=== PATIENT | female | born 1940 | race Caucasian/White ===

== ENCOUNTER 2016-03-08 14:08 | Inpatient (IN) | payer OTHER ==
[2016-03-08] VITALS (9 sets, daily range): BP systolic 80–109; BP diastolic 54–66
[~2016-03-08] VITALS: Ht 160 cm; Wt 67.9 kg
[~2016-03-08 14:08] MED LIST: ADVAIR HFA120 INHAL1 IH; ALBUTEROL SULF8.5 GM IH; ALPRAZOLAM0.25 M2 PO; CARDIZEM LA120 MG PO; FLOVENT 22120 INHALA IH; FUROSEMIDE20 MG PO; LISINOPRIL5 MG PO; LO-DOSE ASPIRIN81 M1 PO; LOPRESSOR25 MG PO; LOPRESSOR50 MG PO; NITROSTAT0.4 MG SL; PEPCID40 MG PO; PREDNISONE10 M1 PO; PREDNISONE10 MG PO; SPIRIVA RESPIMAT4 GM IH; XARELTO20 MG PO
[2016-03-08 14:44] LABS: HEMATOCRIT 42.5 % (36.0-46.0); MCH 27.8 PG (29.0-34.0); MCHC 31.3 G/DL (30.0-36.0); MCV 88.9 FL (83-99); PLATELET COUNT 278 K/uL (156-360); RBC DIS.WIDTH-CV 16.6 % (11.8-14.6); RBC DIS.WIDTH-SD 49.1 % (39-53); RED BLOOD COUNT 4.78 M/uL (3.80-5.20); WHITE BLOOD COUNT 8.6 K/uL (4.1-10.2)
[2016-03-08 14:52] LABS: CHLORIDE 98 mEq/L (99-109); POTASSIUM 3.8 mEq/L (3.7-5.4); SODIUM 140 mEq/L (136-147)
[2016-03-08 14:54] LABS: GLUCOSE 202 mg/dL (70-99)
[2016-03-08 14:55] LABS: ANION GAP 11 MEQ/L (2-14)
[2016-03-08 14:58] LABS: GFR ESTIMATE (CALCULATED) > 59 mL/min/
[2016-03-08 14:59] LABS: UREA NITROGEN (BUN) 17 mg/dL (9-23)
[2016-03-08 15:06] LABS: TROP-I INTERPRETATION NEGATIVE; TROPONIN-I < 0.01 ng/mL (0.0-0.30)
[2016-03-08 15:42] LABS: TOTAL BILIRUBIN 0.8 mg/dL (0.0-1.0)
[2016-03-08 15:43] LABS: ALKALINE PHOSPHATASE 97 IU/L (3-129)
[2016-03-08 15:45] LABS: DIRECT BILIRUBIN 0.6 mg/dL (0.0-0.3)
[2016-03-08 17:15] LABS: ADD MIUA? YES; BILIRUBIN NEGATIVE; BLOOD NEGATIVE; COLOR YELLOW ((YELLOW)); GLUCOSE (STRIP) NEGATIVE; KETONES NEGATIVE; LEUKOCYTES MODERATE; NITRITE NEGATIVE; PROTEIN (STRIP) TRACE; SPECIFIC GRAVITY 1.019 (1.000-1.030)
[2016-03-08 17:40] LABS: BASE EXCESS 11.9 mEq/L (-3 to +3); BICARBONATE 38.2 mEq/L (22-26); CARBOXY HGB 3.3 % (0-5); COMMENTS - BLOOD GASES A+C+; DEVICE NC; METHEMOGLOBIN 1.2 % (0-1.5); O2 FLOW 6 L/MIN; PCO2 55 mm Hg (35-45); PO2 53 mm Hg (80-100); SITE RR; pH 7.45 (7.35-7.45)
[2016-03-08 18:15] LABS: BACTERIA 1+; CASTS PRESENT /LPF; CRYSTALS NONE SEEN; EPITHELIAL CELLS RARE; HYALINE CASTS 0-5 /LPF; MUCUS 1+; RED BLOOD CELLS 0-5 /HPF (0-5); UCUL ADDED? NO; WHITE BLOOD CELLS 0-5 /HPF (0-5)
[2016-03-09] VITALS (11 sets, daily range): BP systolic 79–99; BP diastolic 52–60
[2016-03-09 06:13] LABS: ANION GAP 6 MEQ/L (2-14); CHLORIDE 98 MEQ/L (99-109); GFR ESTIMATE (CALCULATED) > 59 mL/min/; GLUCOSE 169 mg/dL (70-99); SAMPLE HEMOLYSIS CHECK 0; SAMPLE ICTERIC CHECK 0; SAMPLE LIPEMIA CHECK 0; SODIUM 138 MEQ/L (136-147); UREA NITROGEN (BUN) 15 mg/dL (9-23)
[2016-03-09 06:23] LABS: POTASSIUM 4.8 MEQ/L (3.7-5.4)
[2016-03-09 07:01] LABS: HEMATOCRIT 42.4 % (36.0-46.0); MCH 28.2 PG (29.0-34.0); MCHC 30.9 G/DL (30.0-36.0); MCV 91.2 FL (83-99); MEAN PLAT.VOLUME 10.8 uM^3 (9.5-12.4); PLATELET COUNT 267 K/uL (156-360); RBC DIS.WIDTH-CV 16.7 % (11.8-14.6); RBC DIS.WIDTH-SD 52.1 % (39-53); RED BLOOD COUNT 4.65 M/uL (3.80-5.20)
[2016-03-09 07:12] LABS: WHITE BLOOD COUNT 5.8 K/uL (4.1-10.2)
[2016-03-09] MEDS ORDERED: FAMOTIDINE40 MG PO (13:15)
[2016-03-09] MEDS ORDERED: SPIRIVA RESPIMAT4 GM IH (13:15)
[2016-03-09] MEDS ORDERED: SEREVENT DISKU50 MCG IH (13:16)
[2016-03-09] MEDS ORDERED: LOPRESSOR50 MG PO (13:17)
[2016-03-09] MEDS ORDERED: XARELTO20 MG PO (13:18)
[2016-03-09] MEDS ORDERED: NITROSTAT0.4 MG SL (13:19)
[2016-03-09] MEDS ORDERED: CHILD ASPIRIN81 M1 PO (13:20)
[2016-03-10 03:46] VITALS: BP 97/62
[2016-03-10 08:06] VITALS: BP 107/64
[2016-03-10 12:33] VITALS: BP 97/56
[2016-03-10 16:55] VITALS: BP 104/69
[2016-03-10 19:30] VITALS: BP 110/66
[2016-03-11] VITALS (7 sets, daily range): BP systolic 96–109; BP diastolic 56–65
[2016-03-11 11:34] LABS: CARBON DIOXIDE (BICARBONATE) 35.7 MEQ/L (20-31)
[2016-03-11 11:53] LABS: D-DIMER ELISA > 4.00 mg/L FEU (< 0.57)
[2016-03-12 05:00] VITALS: BP 121/68
[2016-03-12 07:52] VITALS: BP 97/54
[2016-03-12 11:49] VITALS: BP 129/69
[2016-03-12 16:30] VITALS: BP 113/69
[2016-03-12 20:00] VITALS: BP 136/76
[2016-03-12 20:07] LABS: EOSINOPHIL (%) 0 % (0-5); HEMATOCRIT 41.3 % (36.0-46.0); IMMATURE GRANULOCYTE (%) 0.3 % (0.0-0.7); LYMPHOCYTE COUNT 0.5 K/uL (1.0-2.8); MCH 28.3 PG (29.0-34.0); MCHC 31.2 G/DL (30.0-36.0); MCV 90.6 FL (83-99); MEAN PLAT.VOLUME 10.2 uM^3 (9.5-12.4); MONOCYTE (%) 3.5 % (3-12); MONOCYTE COUNT 0.3 K/uL (0-0.8); NEUTROPHIL (%) 91.2 % (45-76); NEUTROPHIL COUNT 8.8 K/uL (1.8-6.4); PLATELET COUNT 325 K/uL (156-360); RBC DIS.WIDTH-CV 17.2 % (11.8-14.6); RBC DIS.WIDTH-SD 54.3 % (39-53); RED BLOOD COUNT 4.56 M/uL (3.80-5.20)
[2016-03-12 20:23] LABS: ANION GAP 10 MEQ/L (2-14); CHLORIDE 99 MEQ/L (99-109); GFR ESTIMATE (CALCULATED) > 59 mL/min/; GLUCOSE 210 mg/dL (70-99); SAMPLE HEMOLYSIS CHECK 0; SAMPLE ICTERIC CHECK 0; SAMPLE LIPEMIA CHECK 0; SODIUM 141 MEQ/L (136-147); UREA NITROGEN (BUN) 21 mg/dL (9-23); WHITE BLOOD COUNT 9.7 K/uL (4.1-10.2)
[2016-03-12 23:00] VITALS: BP 108/62
[2016-03-13 04:55] VITALS: BP 100/59
[2016-03-13 08:17] VITALS: BP 139/72
[2016-03-13 12:00] VITALS: BP 121/67
[2016-03-13 18:30] VITALS: BP 117/68
[2016-03-13 19:06] VITALS: BP 120/73
[2016-03-14] VITALS: BP 116/63
[2016-03-14 05:09] VITALS: BP 101/55
[2016-03-14 06:43] LABS: HEMATOCRIT 41.6 % (36.0-46.0); MCH 27.6 PG (29.0-34.0); MCHC 30.8 G/DL (30.0-36.0); MCV 89.7 FL (83-99); MEAN PLAT.VOLUME 10.1 uM^3 (9.5-12.4); PLATELET COUNT 324 K/uL (156-360); RBC DIS.WIDTH-CV 17.5 % (11.8-14.6); RBC DIS.WIDTH-SD 55.6 % (39-53); RED BLOOD COUNT 4.64 M/uL (3.80-5.20)
[2016-03-14 06:50] LABS: EOSINOPHIL (%) 0 % (0-5); IMMATURE GRANULOCYTE (%) 0.4 % (0.0-0.7); LYMPHOCYTE COUNT 0.3 K/uL (1.0-2.8); MONOCYTE (%) 3.7 % (3-12); MONOCYTE COUNT 0.3 K/uL (0-0.8); NEUTROPHIL (%) 92.2 % (45-76); NEUTROPHIL COUNT 8.3 K/uL (1.8-6.4)
[2016-03-14 07:35] LABS: ANION GAP 8 MEQ/L (2-14); CHLORIDE 100 MEQ/L (99-109); GFR ESTIMATE (CALCULATED) > 59 mL/min/; SAMPLE HEMOLYSIS CHECK 0; SAMPLE ICTERIC CHECK 0; SAMPLE LIPEMIA CHECK 0; SODIUM 139 MEQ/L (136-147); UREA NITROGEN (BUN) 21 mg/dL (9-23)
[2016-03-14 07:36] LABS: GLUCOSE 109 mg/dL (70-99); POTASSIUM 5.1 MEQ/L (3.7-5.4)
[2016-03-14 09:00] VITALS: BP 126/69
[2016-03-14] MEDS ORDERED: CEFTIN500 MG PO (15:10)
[2016-03-14] MEDS ORDERED: DIGOXIN250 MCG PO (15:11)
[2016-03-14] MEDS ORDERED: CARDIZEM60 MG PO (15:11)
[2016-03-14] MEDS ORDERED: LISINOPRIL5 MG PO (15:12)
[2016-03-14] MEDS ORDERED: PREDNISONE10 MG PO (15:13)
[2016-03-14 18:02] VITALS: BP 113/64
== END 2016-03-14 18:53 | disposition home health service (06) | DRG 190 ==
LOC: EME → EDBD 14:08 → EME 14:08 → 4EAST 18:02 → EDOF 18:02 → 4EAST 20:26
PROVIDERS: Emergency Medicine; Internal Medicine
DX: J44.1 Chronic obstructive pulmonary disease with (acute) exacerbation (principal); J96.21 Acute and chronic respiratory failure with hypoxia; J96.22 Acute and chronic respiratory failure with hypercapnia; I11.0 Hypertensive heart disease with heart failure; I50.30 Unspecified diastolic (congestive) heart failure; E86.0 Dehydration; J90 Pleural effusion, not elsewhere classified; J98.11 Atelectasis; I27.2 Other secondary pulmonary hypertension; I48.0 Paroxysmal atrial fibrillation; Z99.81 Dependence on supplemental oxygen; Z91.19 Patient's noncompliance with other medical treatment and regimen; J45.909 Unspecified asthma, uncomplicated; E78.5 Hyperlipidemia, unspecified; I73.9 Peripheral vascular disease, unspecified; F03.90 Unspecified dementia, unspecified severity, without behavioral disturbance, psychotic disturbance, mood disturbance, and anxiety; F17.200 Nicotine dependence, unspecified, uncomplicated; Z66 Do not resuscitate
CPT/HCPCS: 36600; 71010; 80048; 80076; 81003; 82803; 83880; 84484; 85025; 85027; 85379; 87040; 93005; 93970; 94640; 94640 76; 94799; 99202; 99281; 99285; J0696; J1160; J1940; J2930; J7030; J7050; J7512

== ENCOUNTER 2016-05-01 21:29 | Inpatient (IN) | payer OTHER ==
[~2016-05-01] VITALS: Ht 162.6 cm; Wt 60.2 kg
[~2016-05-01 21:29] MED LIST changes: +CARDIZEM60 MG PO; +CEFTIN500 MG PO; +CHILD ASPIRIN81 M1 PO; +DIGOXIN250 MCG PO; +FAMOTIDINE40 MG PO; +SEREVENT DISKU50 MCG IH
[2016-05-01 21:55] LABS: HEMATOCRIT 47.7 % (36.0-46.0); MCH 28.1 PG (29.0-34.0); MCV 90.5 FL (83-99); MEAN PLAT.VOLUME 9.9 uM^3 (9.5-12.4); PLATELET COUNT 224 K/uL (156-360); RBC DIS.WIDTH-CV 17.1 % (11.8-14.6); RBC DIS.WIDTH-SD 55.3 % (39-53); RED BLOOD COUNT 5.27 M/uL (3.80-5.20); WHITE BLOOD COUNT 10.9 K/uL (4.1-10.2)
[2016-05-01 22:04] LABS: CHLORIDE 104 mEq/L (99-109); POTASSIUM 5.2 mEq/L (3.7-5.4); SODIUM 144 mEq/L (136-147)
[2016-05-01 22:06] LABS: GLUCOSE 138 mg/dL (70-99)
[2016-05-01 22:07] LABS: ANION GAP 10 MEQ/L (2-14)
[2016-05-01 22:10] LABS: GFR ESTIMATE (CALCULATED) > 59 mL/min/
[2016-05-01 22:11] LABS: UREA NITROGEN (BUN) 5 mg/dL (9-23)
[2016-05-01 22:30] LABS: TROP-I INTERPRETATION NEGATIVE; TROPONIN-I < 0.01 ng/mL (0.0-0.30)
[2016-05-02] VITALS (17 sets, daily range): BP systolic 71–110; BP diastolic 47–81
[2016-05-02 00:45] LABS: DIGOXIN 0.8 ng/mL (0.8-2.0)
[2016-05-02 00:51] LABS: ADD MIUA? YES; BILIRUBIN NEGATIVE; BLOOD NEGATIVE; COLOR YELLOW ((YELLOW)); GLUCOSE (STRIP) NEGATIVE; KETONES NEGATIVE; LEUKOCYTES TRACE; NITRITE NEGATIVE; PROTEIN (STRIP) 30; SPECIFIC GRAVITY 1.015 (1.000-1.030); UROBILINOGEN 0.2 MG/DL (0.2-1.0)
[2016-05-02 01:10] LABS: BACTERIA 1+ /HPF; EPITHELIAL CELLS RARE /HPF; MUCUS TRACE /LPF; UCUL ADDED? NO; WHITE BLOOD CELLS 0-5 /HPF (0-5)
[2016-05-02 04:58] LABS: MCH 28.2 PG (29.0-34.0); MCHC 31.4 G/DL (30.0-36.0); MCV 89.8 FL (83-99); MEAN PLAT.VOLUME 9.8 uM^3 (9.5-12.4); PLATELET COUNT 212 K/uL (156-360); RBC DIS.WIDTH-CV 16.7 % (11.8-14.6); RBC DIS.WIDTH-SD 54.3 % (39-53); WHITE BLOOD COUNT 9.9 K/uL (4.1-10.2)
[2016-05-02 05:12] LABS: CHLORIDE 97 mEq/L (99-109); SODIUM 137 mEq/L (136-147)
[2016-05-02 05:13] LABS: GLUCOSE 121 mg/dL (70-99)
[2016-05-02 05:15] LABS: ANION GAP 8 MEQ/L (2-14)
[2016-05-02 05:17] LABS: GFR ESTIMATE (CALCULATED) > 59 mL/min/
[2016-05-02 05:18] LABS: POTASSIUM 3.9 mEq/L (3.7-5.4); UREA NITROGEN (BUN) 7 mg/dL (9-23)
[2016-05-02 05:21] LABS: TROP-I INTERPRETATION NEGATIVE; TROPONIN-I < 0.01 ng/mL (0.0-0.30)
[2016-05-02 10:23] LABS: BASE EXCESS 8.1 mEq/L (-3 to +3); BICARBONATE 35.1 mEq/L (22-26); CARBOXY HGB 2.8 % (0-5); METHEMOGLOBIN 1.1 % (0-1.5); PCO2 58 mm Hg (35-45); PO2 67 mm Hg (80-100); pH 7.39 (7.35-7.45)
[2016-05-02 10:24] LABS: COMMENTS - BLOOD GASES AC+; DEVICE NASAL CANNULA; O2 FLOW 3 L/MIN; SITE LR; TOTAL RESP RATE 18 resp/min
[2016-05-02 11:05] LABS: TROP-I INTERPRETATION NEGATIVE; TROPONIN-I < 0.01 ng/mL (0.0-0.30)
[2016-05-02 15:00] LABS: METH RESISTANT S AUREUS PCR NEGATIVE (NEGATIVE)
[2016-05-02] MEDS ORDERED: ALPRAZOLAM0.25 M2 PO (15:03)
[2016-05-02 15:41] LABS: PROBE CHECK PASS; SPECIMEN PROCESSING CONTROL PASS
[2016-05-02 17:01] LABS: EOSINOPHIL (%) 0 % (0-5); HEMATOCRIT 39.7 % (36.0-46.0); IMMATURE GRANULOCYTE (%) 0.5 % (0.0-0.7); INSTRUMENT ABS NEUTROPHIL CT 3.2 K/uL; LYMPHOCYTE COUNT 0.6 K/uL (1.0-2.8); MCH 27.6 PG (29.0-34.0); MCHC 30.2 G/DL (30.0-36.0); MCV 91.5 FL (83-99); MEAN PLAT.VOLUME 9.9 uM^3 (9.5-12.4); MONOCYTE COUNT 0.1 K/uL (0-0.8); NEUTROPHIL (%) 82.5 % (45-76); NEUTROPHIL COUNT 3.2 K/uL (1.8-6.4); PLATELET COUNT 167 K/uL (156-360); RBC DIS.WIDTH-CV 16.4 % (11.8-14.6); RBC DIS.WIDTH-SD 55.2 % (39-53); RED BLOOD COUNT 4.34 M/uL (3.80-5.20)
[2016-05-02 17:09] LABS: WHITE BLOOD COUNT 3.9 K/uL (4.1-10.2)
[2016-05-02 17:23] LABS: ALKALINE PHOSPHATASE 47 IU/L (3-129); ANION GAP 7 MEQ/L (2-14); CHLORIDE 99 MEQ/L (99-109); GFR ESTIMATE (CALCULATED) > 59 mL/min/; POTASSIUM 3.9 MEQ/L (3.7-5.4); SAMPLE HEMOLYSIS CHECK 0; SAMPLE ICTERIC CHECK 0; SAMPLE LIPEMIA CHECK 0; SODIUM 138 MEQ/L (136-147); TOTAL BILIRUBIN 0.6 MG/DL (0.0-1.0); UREA NITROGEN (BUN) 11 mg/dL (9-23)
[2016-05-02 17:24] LABS: GLUCOSE 273 mg/dL (70-99)
[2016-05-02] MEDS ORDERED: ASPIR-LOW81 MG PO (19:28)
[2016-05-02] MEDS ORDERED: DIGOXIN250 MCG PO (19:30)
[2016-05-02] MEDS ORDERED: FAMOTIDINE40 MG PO (19:30)
[2016-05-02] MEDS ORDERED: XARELTO20 MG PO (19:31)
[2016-05-02] MEDS ORDERED: LISINOPRIL5 MG PO (19:31)
[2016-05-03] VITALS (12 sets, daily range): BP systolic 96–141; BP diastolic 54–86
[2016-05-03 06:40] LABS: HEMATOCRIT 37.8 % (36.0-46.0); MCHC 30.7 G/DL (30.0-36.0); MCV 91.3 FL (83-99); MEAN PLAT.VOLUME 10.8 uM^3 (9.5-12.4); PLATELET COUNT 159 K/uL (156-360); RBC DIS.WIDTH-CV 16.4 % (11.8-14.6); RBC DIS.WIDTH-SD 55.8 % (39-53); RED BLOOD COUNT 4.14 M/uL (3.80-5.20); WHITE BLOOD COUNT 4.3 K/uL (4.1-10.2)
[2016-05-03 07:12] LABS: ANION GAP 8 MEQ/L (2-14); CHLORIDE 106 MEQ/L (99-109); GFR ESTIMATE (CALCULATED) > 59 mL/min/; SAMPLE HEMOLYSIS CHECK 0; SAMPLE ICTERIC CHECK 0; SAMPLE LIPEMIA CHECK 0; SODIUM 142 MEQ/L (136-147); UREA NITROGEN (BUN) 10 mg/dL (9-23)
[2016-05-03 07:15] LABS: GLUCOSE 130 mg/dL (70-99)
[2016-05-04 04:35] VITALS: BP 121/70
[2016-05-04 07:56] VITALS: BP 134/76
[2016-05-04 11:59] VITALS: BP 118/80
[2016-05-04 16:29] VITALS: BP 126/70
[2016-05-04 20:20] VITALS: BP 142/76
[2016-05-05 00:30] VITALS: BP 125/81
[2016-05-05 06:15] LABS: MCH 27.7 PG (29.0-34.0); MCHC 30.5 G/DL (30.0-36.0); MCV 90.9 FL (83-99); MEAN PLAT.VOLUME 10.1 uM^3 (9.5-12.4); RBC DIS.WIDTH-CV 16.9 % (11.8-14.6); RBC DIS.WIDTH-SD 56.6 % (39-53); RED BLOOD COUNT 4.29 M/uL (3.80-5.20)
[2016-05-05 06:18] LABS: PLATELET COUNT 224 K/uL (156-360); WHITE BLOOD COUNT 7.3 K/uL (4.1-10.2)
[2016-05-05 06:42] LABS: ANION GAP 8 MEQ/L (2-14); CHLORIDE 104 MEQ/L (99-109); GFR ESTIMATE (CALCULATED) > 59 mL/min/; POTASSIUM 3.7 MEQ/L (3.7-5.4); SAMPLE HEMOLYSIS CHECK 0; SAMPLE ICTERIC CHECK 0; SAMPLE LIPEMIA CHECK 0; SODIUM 141 MEQ/L (136-147); UREA NITROGEN (BUN) 14 mg/dL (9-23)
[2016-05-05 06:44] LABS: GLUCOSE 75 mg/dL (70-99)
[2016-05-05 08:05] VITALS: BP 138/69
[2016-05-05 12:33] VITALS: BP 135/68
[2016-05-05] MEDS ORDERED: NICOTINE PATCH1 EAC1 TD (13:35)
[2016-05-05] MEDS ORDERED: AZITHROMYCIN500 M1 PO (13:35)
[2016-05-05] MEDS ORDERED: LOPRESSOR25 MG PO (13:38)
[2016-05-05] MEDS ORDERED: DELTASONE20 M1 PO (13:39)
== END 2016-05-05 15:05 | disposition home health service (06) | DRG 189 ==
LOC: EME → EDBD 21:29 → 3EAST 23:55 → 4SOUTH 23:55 → 4WEST 23:55 → EDOF 23:55 → 4SOUTH 05-02 01:27 → 4WEST 05-02 13:23 → 3EAST 05-03 15:03
PROVIDERS: Emergency Medicine; Hospitalist; Internal Medicine Nephrology; Nurse Practitioner Family
DX: J96.21 Acute and chronic respiratory failure with hypoxia (principal); I50.33 Acute on chronic diastolic (congestive) heart failure; L89.159 Pressure ulcer of sacral region, unspecified stage; I95.89 Other hypotension; I27.2 Other secondary pulmonary hypertension; Z99.81 Dependence on supplemental oxygen; J44.0 Chronic obstructive pulmonary disease with (acute) lower respiratory infection; B88.8 Other specified infestations; I48.0 Paroxysmal atrial fibrillation; J44.1 Chronic obstructive pulmonary disease with (acute) exacerbation; I11.0 Hypertensive heart disease with heart failure; Z79.01 Long term (current) use of anticoagulants; Z91.19 Patient's noncompliance with other medical treatment and regimen; F17.210 Nicotine dependence, cigarettes, uncomplicated; M71.22 Synovial cyst of popliteal space [Baker], left knee; R82.71 Bacteriuria; J20.9 Acute bronchitis, unspecified; J96.22 Acute and chronic respiratory failure with hypercapnia; Z66 Do not resuscitate; J45.909 Unspecified asthma, uncomplicated; I73.9 Peripheral vascular disease, unspecified; E78.5 Hyperlipidemia, unspecified
CPT/HCPCS: 36600; 71010; 71020; 71250; 80048; 80053; 80162; 81003; 82803; 83605; 83880; 84484; 85025; 85027; 87086; 87641; 93005; 93306; 93970; 94640; 94640 76; 94799; 99202; 99281; 99285; J1940; J1956; J2920; J2930; J7120; J7512; J7644; P9045